=== PATIENT | male | born 1980 | race Caucasian/White ===

== ENCOUNTER 2018-03-10 01:24 | Inpatient (IN) ==
[2018-03-10] MEDS ORDERED: SODIUM CHLORIDE 1,000 ML IV STA (01:41)
[2018-03-10] MEDS ORDERED: VANCOMYCIN 1.5 GM in SODIUM CHLORIDE 250 ML IV STA (01:41)
--- NOTE | 2018-03-10 02:20 | ED.PDOC ---
General ED Provider: Dr. FEROZ BRADLEY Chief Complaint: Cellulitis Stated Complaint: sudden onset of rash on the right lower extremity that started tonight after he left work. The leg became edematous and is seeping clear fluid Time Seen by Physician: 02:18 Mode of Arrival: Walk-In Information Source: Patient Exam Limitations: No limitations Primary Care Provider: [facility] Nursing and Triage Documentation Reviewed and Agree: Yes Does patient meet sepsis criteria?: No System Inflammatory Response Syndrome: Pulse >90 BPM Sepsis Protocol: For patient's 13 years and over: Temp is 96.8 and below OR 101 and greater Pulse >90 BPM Resp >20/minute Acutely Altered Mental Status Are patient's symptoms suggestive of a new infection, such as: -Pneumonia -Skin, Soft Tissue -Endocarditis -UTI -Bone, Joint Infection -Implantable Device -Acute Abdominal Infection -Wound Infection -Meningitis -Blood Stream Catheter Infection -Unknown Skin Complaint Exam - Skin Rash/Itching Complaint/Exam Onset/Duration: 2 hours ago Symptoms Are: Still present Initial Severity: Moderate Current Severity: Moderate Location: Right lower extremity Potential Exposures: Reports: Unknown Prior Treatment: nothing Aggravating: Reports: None Associated Signs and Symptoms: Denies: Difficulty breathing, Fever, Chills Skin Findings: Present: Purpura, Weeping skin Body Picture: 1 - cellulitis Differential Diagnoses: Contact Dermatitis, Other (cellulitis ) Review of Systems - Review Of Systems Constitutional: Reports: No symptoms Eyes: Reports: No symptoms Ears, Nose, Mouth, Throat: Reports: No symptoms Respiratory: Reports: No symptoms Cardiac: Reports: No symptoms GI: Reports: No symptoms : Reports: No symptoms Musculoskeletal: Reports: Joint swelling, Muscle pain Skin: Reports: Change in color, Rash Neurological: Reports: No symptoms Endocrine: Reports: No symptoms Hematologic/Lymphatic: Reports: No symptoms All Other Systems: Reviewed and Negative Past Medical History - Past Medical History Previously Healthy: Yes Endocrine: Reports: None Cardiovascular: Reports: None Respiratory: Reports: None Hematological: Reports: None Gastrointestinal: Reports: None Genitourinary: Reports: None Neuro/Psych: Reports: None Musculoskeletal: Reports: None Cancer: Reports: None - Surgical History General Surgical History: Reports: None - Family History Family History: Reports: Unknown - Social History Smoking Status: Current every day smoker, Heavy tobacco smoker Hx Substance Use: No Alcohol Screening: Occasionally - Immunizations Tetanus Shot up to Date: No Physical Exam - Physical Exam Appearance: Ill-appearing, Obese Pain Distress: Moderate Eyes: ROBERTO, EOMI, Conjunctiva clear Respiratory: Airway patent, Breath sounds clear, Breath sounds equal, Respirations nonlabored Cardiovascular: RRR, Pulses normal, No rub, No murmur GI/: Soft, Nontender, No masses, Bowel sounds normal, No Organomegaly Musculoskeletal: Normal strength, ROM intact, No calf tenderness, Edema (right lower extremity ) Skin: Warm, Dry Neurological: Alert, Oriented Psychiatric: Anxious Physician Notification - Case Discussed Physician Notified: Dr Farmer Time of Notification: 02:00 (Admit to aburto place on antibitics ) Critical Care Note - Critical Care Note Total Time (mins): 0 Course - Course Hematology/Chemistry: 03/10/18 01:50 03/10/18 01:50 Orders, Labs, Meds: Lab Review 03/10/18 03/10/18 03/10/18 01:50 01:50 01:50 WBC 13.00 H RBC 4.71 Hgb 13.3 L Hct 38.7 L MCV 82.2 MCH 28.2 MCHC 34.4 RDW Coeff of [place] 13.6 Plt Count 199 Immature Gran % (Auto) 0.5 Neut % (Auto) 82.4 Lymph % (Auto) 8.8 L [place] % (Auto) 7.8 Eos % (Auto) 0.2 Baso % (Auto) 0.3 Immature Gran # (Auto) 0.1 Neut # (Auto) 10.7 H Lymph # (Auto) 1.2 [place] # (Auto) 1.0 Eos # (Auto) 0.0 Baso # (Auto) 0.0 Sodium 136 Potassium 3.1 L Chloride 105 Carbon Dioxide 20 L Anion Gap 14.1 BUN 16 Creatinine 0.84 Estimated GFR (MDRD) 102.00 BUN/Creatinine Ratio 19.04 Glucose 104 H Lactic Acid Calcium 9.0 Total Bilirubin 0.6 AST 30 ALT 29 Alkaline Phosphatase 73 Total Protein 7.4 Albumin 3.1 L Globulin 4.3 Albumin/Globulin Ratio 0.72 Procalcitonin 1.68 03/10/18 01:50 WBC RBC Hgb Hct MCV MCH MCHC RDW Coeff of [place] Plt Count Immature Gran % (Auto) Neut % (Auto) Lymph % (Auto) [place] % (Auto) Eos % (Auto) Baso % (Auto) Immature Gran # (Auto) Neut # (Auto) Lymph # (Auto) [place] # (Auto) Eos # (Auto) Baso # (Auto) Sodium Potassium Chloride Carbon Dioxide Anion Gap BUN Creatinine Estimated GFR (MDRD) BUN/Creatinine Ratio Glucose Lactic Acid 10.8 Calcium Total Bilirubin AST ALT Alkaline Phosphatase Total Protein Albumin Globulin Albumin/Globulin Ratio Procalcitonin Orders Category Date Time Status INTAKE & OUTPUT Q8HR CARE 03/10/18 02:25 Active VITAL SIGNS Q4HR CARE 03/10/18 02:25 Active REGULAR DIET DIETARY 03/10/18 Breakfast Ordered ED APPLY O2 .ONCE EMERGENCY 03/10/18 01:41 Active ED AEROSPACE QUALITY ENGINEER APPLIED .ONCE EMERGENCY 03/10/18 01:41 Active IV [ED IV/MEDIPORT/POWERPORT] .ONCE EMERGENCY 03/10/18 02:05 Active BASIC METABOLIC PANEL DAILY@0600 LAB 03/11/18 06:00 Ordered BLOOD CULTURE (ED ONLY) Stat LAB 03/10/18 01:50 Received CBC W/ AUTO DIFF DAILY@0600 LAB 03/11/18 06:00 Ordered CBC W/ AUTO DIFF Stat LAB 03/10/18 01:50 Completed COMPREHENSIVE METABOLIC PANEL Stat LAB 03/10/18 01:50 Completed LACTIC ACID Stat LAB 03/10/18 01:50 Completed PROCALCITONIN Stat LAB 03/10/18 01:50 Completed 0.9 % Sodium Chloride [Saline Flush] MEDS 03/10/18 02:05 Active 1 syr IVF PRN PRN Acetaminophen [Tylenol] MEDS 03/10/18 02:25 Active 650 mg PO Q4H PRN Enoxaparin Sodium [Lovenox] MEDS 03/10/18 09:00 Active 40 mg SUBCUT DAILY Furosemide [Lasix] MEDS 03/10/18 06:30 Active 20 mg IVP QDAC Hydrocodone Bit/Acetaminophen [[place] 5-325] MEDS 03/10/18 02:25 Active 1 tab PO Q6H PRN Morphine Sulfate [Morphine 2 mg/ml Syringe] MEDS 03/10/18 02:25 Active 2 mg IVP Q4H PRN Ondansetron HCl/Pf [Zofran 4 mg/2 ml] MEDS 03/10/18 02:25 Active 4 mg IVP Q6H PRN Potassium Chloride [K-Dur] MEDS 03/10/18 03:00 Active 20 meq PO DAILY Sodium Chloride 0.9% [Sodium Chloride] 1,000 ml MEDS 03/10/18 01:41 Active IV 100 mls/hr Sodium Chloride 0.9% [Sodium Chloride] 1,000 ml MEDS 03/10/18 02:30 Active IV 125 mls/hr Vancomycin HCl [Vancomycin] 1.5 gm MEDS 03/10/18 01:41 Discontinued 0.9 % Sodium Chloride [Sodium Chloride] 250 ml IV ONCE Vancomycin HCl [Vancomycin] 1.5 gm MEDS 03/10/18 09:00 Discontinued 0.9 % Sodium Chloride [Sodium Chloride] 250 ml IV Q12HR RESUSCITATION STATUS Routine OTHERS 03/10/18 02:25 Ordered Medications Generic Name Dose Route Start Last Admin Trade Name Freq PRN Reason Stop Dose Admin Acetaminophen 650 mg 03/10/18 02:25 Tylenol PO Q4H PRN mild pain Hydrocodone Bitart/Acetaminophen 1 tab 03/10/18 02:25 [place] 5-325 PO Q6H PRN moderate pain Enoxaparin Sodium 40 mg 03/10/18 09:00 03/10/18 08:50 Lovenox SUBCUT 40 mg DAILY SANDEE Administration Furosemide 20 mg 03/10/18 06:30 03/10/18 06:10 Lasix IVP 20 mg QDAC SANDEE Administration Sodium Chloride 1,000 mls @ 100 mls/hr 03/10/18 01:41 03/10/18 02:09 Sodium Chloride IV 03/10/18 11:40 100 mls/hr .Q10H STA Administration Sodium Chloride 1,000 mls @ 125 mls/hr 03/10/18 02:30 03/10/18 05:01 Sodium Chloride IV Not Given .Q8H SANDEE Vancomycin HCl 1.5 gm/ Sodium 500 mls @ 200 mls/hr 03/10/18 13:00 Chloride IV Q8HR SANDEE Ibuprofen 600 mg 03/10/18 07:12 Motrin PO Q6H PRN Pain Morphine Sulfate 2 mg 03/10/18 02:25 Morphine 2 Mg/Ml Syringe IVP Q4H PRN Severe Pain Ondansetron HCl 4 mg 03/10/18 02:25 Zofran 4 Mg/2 Ml IVP Q6H PRN nausea and vomiting Potassium Chloride 20 meq 03/10/18 03:00 03/10/18 08:50 K-Dur PO 20 meq DAILY SANDEE Administration Sodium Chloride 1 syr 03/10/18 02:05 03/10/18 02:08 Saline Flush IVF 1 syr PRN PRN Administration To flush IV Discontinued Medications Generic Name Dose Route Start Last Admin Trade Name Freq PRN Reason Stop Dose Admin Vancomycin HCl 1.5 gm/ Sodium 250 mls @ 250 mls/hr 03/10/18 01:41 03/10/18 02 :17 Chloride IV 03/10/18 02:40 250 mls/hr ONCE STA Administration Vancomycin HCl 1.5 gm/ Sodium 250 mls @ 125 mls/hr 03/10/18 09:00 Chloride IV Q12HR SANDEE Vital Signs: Temp Pulse Resp BP Pulse Ox 03/10/18 01:25 98.7 F 109 H 20 132/81 96 Departure - Departure Time of Disposition: 02:34 Disposition: HOME SELF-CARE Discharge Problem: Cellulitis, Lower leg edema, Hypokalemia Condition: Stable Pt referred to PMD for follow-up: No IPMP verified?: No Allergies/Adverse Reactions: Allergies Penicillins Allergy (Severe, Verified 03/10/18 01:37) rash Home Medications: Ambulatory Orders Ibuprofen 600 mg PO Q6H PRN 03/10/18 Disposition Discussed With: Patient, Family
[2018-03-10] MEDS ORDERED: ZOFRAN 4 MG/2 ML IVP PRN (02:25)
[2018-03-10] MEDS ORDERED: TYLENOL PO PRN (02:25)
[2018-03-10] MEDS ORDERED: MORPHINE 2 MG/ML SYRINGE IVP PRN (02:25)
[2018-03-10] MEDS ORDERED: NORCO 5-325 PO PRN (02:25)
[2018-03-10] MEDS ORDERED: IBUPROFEN 600 MG PO PRN (02:29)
[2018-03-10 03:31] VITALS: BMI 40.4
[2018-03-10] MEDS: K-DUR PO SCH ×2 (05:00→08:50)
[2018-03-10] MEDS: SODIUM CHLORIDE 1,000 ML IV SCH ×2 (05:01→13:06)
[2018-03-10] MEDS: LASIX IVP SCH (06:10)
[2018-03-10] MEDS ORDERED: MOTRIN PO PRN (07:12)
[2018-03-10] MEDS: LOVENOX SUBCUT SCH (08:50)
[2018-03-10] MEDS ORDERED: VANCOMYCIN 1.5 GM in SODIUM CHLORIDE 250 ML IV SCH (09:00)
[2018-03-10] MEDS: VANCOMYCIN 1.5 GM in SODIUM CHLORIDE 500 ML IV SCH ×2 (12:05→21:52)
[2018-03-10] MEDS: SODIUM CHLORIDE 500 ML IV SCH (15:16)
[2018-03-10] MEDS ORDERED: ROCEPHIN ONE (20:44)
[2018-03-10] MEDS: ROCEPHIN 1 GM in SODIUM CHLORIDE 50 ML IV SCH (20:54)
[2018-03-11] MEDS: VANCOMYCIN 1.5 GM in SODIUM CHLORIDE 500 ML IV SCH ×3 (05:00→20:57)
[2018-03-11] MEDS: LASIX IVP SCH (05:35)
[2018-03-11] MEDS: LOVENOX SUBCUT SCH (08:45)
[2018-03-11] MEDS: K-DUR PO SCH (08:45)
[2018-03-11] MEDS ORDERED: K-DUR PO STA (08:57)
[2018-03-11] MEDS: SODIUM CHLORIDE 500 ML IV SCH (09:12)
[2018-03-11] MEDS: DIFLUCAN PO SCH ×2 (09:13→20:09)
--- NOTE | 2018-03-11 15:22 | HP ---
DATE OF SERVICE: 03/10/18 CHIEF COMPLAINT/HISTORY OF PRESENT ILLNESS: The patient came with the redness and swelling to the right lower extremity, started on . Gradually the redness initially started yesterday above the ankle then it went up to circumferentially around the ankle and then the red streaks were going up to the right thigh up the groin. As swelling and redness is getting worse and the patient started having the fever and chills came to the emergency room. The patient did take Ibuprofen 600mg before coming to the emergency room. Temperature 98.7. Seen by Dr. Khan. WBC was 13,000 with left shift, Potassium 3.1, sugar 104. At that time the patient was admitted to the hospital for the IV antibiotics for right lower extremity diffused cellulitis. REVIEW OF SYSTEMS: CONSTITUTIONAL: Fever, Chills. HEENT: Normal. ENDOCRINE: No weight gain; no weight loss. CVS: No chest pain. No PND, no orthopnea. No shortness of breath. No PND, no orthopnea. RESPIRATORY: No cough, no congestion. No hemoptysis. GI: No nausea, no vomiting. No abdominal pain. No melena. : No hematuria. No polyuria. MUSCULOSKELETAL: No joint swelling. Right leg pain, swelling, redness. PSYCHIATRIC: Not anxious. No depression. No suicidal thoughts. No homicidal thoughts. SKIN: Intact, no open lesions. PAST MEDICAL HISTORY: Sleep apnea on CPAP Nicotine use PAST SURGICAL HISTORY: Umbilical hernia repair PERSONAL HISTORY: The patient does smoke. Works at the [employer] as a cook. Alcohol socially, no drugs. Smokes a pack per day. FAMILY HISTORY: No medical problems. MEDICATIONS: Ibuprofen ALLERGIES: Penicillin PHYSICAL EXAMINATION: V/S: Blood pressure 132/81, respiratory rate 20, heart rate 109, temperature 98.7 and saturation 96% HEENT: Atraumatic, normocephalic. No scleral icterus. Pallor positive. Mucosa dry. NECK: Supple. No JVD, no bruit. No lymphadenopathy. No thyromegaly. HEART: S1, S2 normal. No murmur. No cyanosis or clubbing. No ascites. LUNGS: Clear to auscultation. No rales or rhonchi. ABDOMEN: Soft, nontender. Bowel sounds are active. No CVA tenderness. No rigidity or guarding. EXTREMITIES: No pedal edema. No cyanosis or clubbing. Discomfort right leg. Swelling and redness is present. Redness is starting just above the right ankle and has almost 1-2cm bleb. Redness is circumferential and the streaks are going up to the mid calf and to the back to the thigh and to the thigh. Tender to touch and warm to touch. MUSCULOSKELETAL: Normal joints, no swelling. NEUROLOGIC: The patient is alert and oriented. SKIN: Intact; no open lesions. LYMPHATIC: No lymph nodes palpable. LABS: Sodium 136, potassium 3.1, chloride 105, bicarb 20, BUN 16, creatinine 0.84 and glucose 104.WBC 13.0, hgb 13.3, hct 38.7, plt count 199. ASSESSMENT: 1. Right lower extremity cellulitis, diffused 2. Leukocytosis 3. Hypokalemia 4. Sleep apnea PLAN: 1. Admit patient to the regular floor 2. CBC and CMP today and daily 3. Keep the legs elevated 4. Regular diet 5. Vancomycin and Rocephin TIME SPENT: MORE THAN 65 minutes MTDD
[2018-03-11] MEDS: SODIUM CHLORIDE 1,000 ML IV SCH (18:31)
[2018-03-11] MEDS: ROCEPHIN 1 GM in SODIUM CHLORIDE 50 ML IV SCH (20:09)
[2018-03-12] MEDS: VANCOMYCIN 1.5 GM in SODIUM CHLORIDE 500 ML IV SCH ×3 (04:49→21:04)
[2018-03-12] MEDS: LASIX IVP SCH (05:36)
[2018-03-12] MEDS: K-DUR PO SCH (08:53)
[2018-03-12] MEDS: DIFLUCAN PO SCH ×2 (08:53→21:04)
[2018-03-12] MEDS: LOVENOX SUBCUT SCH (08:54)
--- NOTE | 2018-03-12 13:51 | PN ---
DATE OF SERVICE: 03/11/18 SUBJECTIVE: The patient was admitted with right lower extremity diffuse cellulitis. Redness and swelling is slowly getting better. REVIEW OF SYSTEMS: CONSTITUTIONAL: No fever, no chills. HEENT: Normal. ENDOCRINE: No weight gain, no weight loss. CVS: No angina symptoms. No CHF symptoms. No palpitations. No atypical chest pain for CAD. No shortness of breath. No PND, no orthopnea. RESPIRATORY: No cough, no hemoptysis. GI: No nausea, no vomiting. No abdominal pain. : No hematuria. No polyuria. MUSCULOSKELETAL: Redness and swelling right leg above the ankle. PSYCHIATRIC: Not anxious. No depression. No suicidal thoughts. No homicidal thoughts. SKIN: Intact. No rash. PHYSICAL EXAMINATION: V/S: BP 114/71, respiratory rate 18, heart rate 87, temperature 98.2, saturation 96. HEENT: Normocephalic, atraumatic. Mucosa dry. Pallor positive. No icterus. NECK: Supple. No JVD, no carotid bruit. No lymphadenopathy. LUNGS: Decreased breath sounds. Clear to auscultation. No rales or rhonchi. HEART: S1, S2 normal. No S3. No murmur, gallop or regurgitation. ABDOMEN: Soft, nontender. Bowel sounds active. No rigidity. No rebound or guarding. No CVA tenderness. EXTREMITIES: Right leg above the ankle redness and swelling present, warm to touch, tender to touch. No cyanosis, clubbing or pedal edema. MUSCULOSKELETAL: No joint swelling. NEUROLOGIC: Awake, alert. No focal deficit. LYMPHATIC: No lymph nodes palpable. SKIN: Intact. LABS: White count 7.91, hemoglobin 11.8, hematocrit 34.2, platelet count 192. Sodium 137, potassium 3.2, chloride 108, bicarb 21, BUN 30, creatinine 0.70, glucose 108. ASSESSMENT: 1. RIGHT LOWER EXTREMITY CELLULITIS, DIFFUSE, CIRCUMFERENTIAL 2. HYPOKALEMIA 3. OBESITY PLAN: 1. Continue Rocephin, Vancomycin. 2. Will add Diflucan. 3. Keep leg elevated. TIME SPENT: More than 35 minutes MTDD
--- NOTE | 2018-03-12 14:39 | CT ---
Exam: CT of the right tibia and fibula with intravenous contrast. Comparison: None available. Reason for exam: Cellulitis right lower extremity. FINDINGS: No acute fracture or malalignment is seen in the right tibia or fibula. The cortices are intact. Extensive cellulitis is seen throughout the soft tissues without obvious involvement of the underlying osseous structures or infiltration of the musculature. No discrete drainable fluid collec tion is seen. There is a 1.8 x 1.2 cm hypodensity in skin overlying the proximal tibia on axial imag e number 145. Right lower extremity vascularity appears grossly unremarkable. Impression: 1. No acute fracture or malalignment in the right tibia-fibula. 2. Extensive inflammatory changes are seen throughout the right lower extremity soft tissues consist ent with cellulitis. 3. No discrete drainable fluid collection is seen in the subcutaneous fat. No obvious involvement o f the underlying osseous structures or musculature. If clinical concern exists, MRI may be performed for further characterization. 4. Cystic lesion in the anterior tibial skin has an appearance consistent with a boil or cyst.
[2018-03-12] MEDS: ZOSYN 3.375 GM 3.375 GM in SODIUM CHLORIDE 50 ML IV SCH ×2 (17:09→23:56)
[2018-03-13] MEDS: VANCOMYCIN 1.5 GM in SODIUM CHLORIDE 500 ML IV SCH ×3 (06:11→20:23)
[2018-03-13] MEDS: LASIX IVP SCH (06:31)
[2018-03-13] MEDS: ZOSYN 3.375 GM 3.375 GM in SODIUM CHLORIDE 50 ML IV SCH ×4 (07:03→17:09)
[2018-03-13] MEDS: TORADOL IVP SCH ×3 (07:59→21:15)
[2018-03-13] MEDS: DIFLUCAN PO SCH ×2 (08:14→20:23)
[2018-03-13] MEDS: K-DUR PO SCH (08:14)
[2018-03-13] MEDS: LOVENOX SUBCUT SCH (08:15)
[2018-03-13] MEDS ORDERED: DECADRON 4 MG/ML SDV IM STA (08:21)
[2018-03-13] MEDS: SODIUM CHLORIDE 1,000 ML IV SCH (08:44)
--- NOTE | 2018-03-13 10:41 | PN ---
DATE OF SERVICE: 03/12/18 SUBJECTIVE: The patient was admitted with right lower extremity cellulitis. It is getting slowly better, redness and swelling and improving. The patient did have a fever of 100.4 yesterday. REVIEW OF SYSTEMS: CONSTITUTIONAL: Fever, no chills. HEENT: Normal. ENDOCRINE: No weight gain, no weight loss. CVS: No angina symptoms. No CHF symptoms. No palpitations. No atypical chest pain for CAD. No shortness of breath. No PND, no orthopnea. RESPIRATORY: No cough, no hemoptysis. GI: No nausea, no vomiting. No abdominal pain. : No hematuria. No polyuria. MUSCULOSKELETAL: No joint swelling. PSYCHIATRIC: Not anxious. No depression. No suicidal thoughts. No homicidal thoughts. SKIN: Intact. No rash. PHYSICAL EXAMINATION: V/S: Blood pressure 116/72, respiratory rate 16, heart rate 96, temperature 98.7 , saturation 96%. HEENT: Normocephalic, atraumatic. Mucosa dry. Pallor positive. no icterus. NECK: Supple. No JVD, no carotid bruit. No lymphadenopathy. LUNGS: Decreased and clear to auscultation. No rales or rhonchi. HEART: S1, S2 normal. No S3. No murmur, gallop or regurgitation. ABDOMEN: Soft, nontender. Bowel sounds active. No rigidity. No rebound or guarding. No CVA tenderness. EXTREMITIES: No cyanosis, clubbing or pedal edema. Right lower extremity redness circumferentially present. Thickened skin and anterior bled is present. Tenderness in the calf present. MUSCULOSKELETAL: No joint swelling. NEUROLOGIC: Awake, alert. No focal deficit. LYMPHATIC: No lymph nodes palpable. SKIN: Intact. LABS: WBC 7.91, hgb 11.8, hct 34.2, plt count 192, sodium 137, potassium 3.2, chloride 108, bicarb 21, BUN 10, creatinine 0.70 and glucose 108. Calcium is 7.7 , lactic acid is negative. ASSESSMENT: 1. Right lower extremity diffused cellulitis, circumferential 2. Nicotine use 3. Hypokalemia 4. Obesity 5. Umbilical hernia repair PLAN: 1. Stop the Rocephin 2. Start the patient on Zosyn and Vancomycin 3. Continue Diflucan 4. Keep the leg elevated TIME SPENT: More than 35 minutes MTDD
[2018-03-14] MEDS: ZOSYN 3.375 GM 3.375 GM in SODIUM CHLORIDE 50 ML IV SCH ×4 (00:10→17:17)
[2018-03-14] MEDS: LASIX IVP SCH (05:55)
[2018-03-14] MEDS: TORADOL IVP SCH ×3 (05:55→20:10)
[2018-03-14] MEDS: VANCOMYCIN 1.5 GM in SODIUM CHLORIDE 500 ML IV SCH ×3 (06:43→20:27)
[2018-03-14] MEDS: DIFLUCAN PO SCH ×2 (10:10→20:27)
[2018-03-14] MEDS: LOVENOX SUBCUT SCH (10:11)
[2018-03-14] MEDS: K-DUR PO SCH (10:11)
--- NOTE | 2018-03-14 11:44 | PN ---
DATE OF SERVICE: 03/13/18 SUBJECTIVE: The patient is admitted with right lower extremity diffuse circumferential cellulitis. Swelling and redness is somewhat better. The patient had a CT of the lower extremity with IV contrast which did show the superficial cellulitis but no compartment syndrome, no inflammation of the muscles or bone. The patient was able to move the leg more today. REVIEW OF SYSTEMS: CONSTITUTIONAL: No fever, no chills. HEENT: Normal. ENDOCRINE: No weight gain, no weight loss. CVS: No angina symptoms. No CHF symptoms. No palpitations. No atypical chest pain for CAD. No shortness of breath. No PND, no orthopnea. RESPIRATORY: No cough, no hemoptysis. GI: No nausea, no vomiting. No abdominal pain. : No hematuria. No polyuria. MUSCULOSKELETAL: No joint swelling. PSYCHIATRIC: Not anxious. No depression. No suicidal thoughts. No homicidal thoughts. SKIN: Intact. No rash. PHYSICAL EXAMINATION: V/S: BP 108/72, respiratory rate 18, heart rate 72, temperature 98.0, saturation 98. HEENT: Normocephalic, atraumatic. Mucosa dry, pallor positive. NECK: Supple. No JVD, no carotid bruit. No lymphadenopathy. LUNGS: Clear to auscultation. No rales or rhonchi. HEART: S1, S2 normal. No S3. No murmur, gallop or regurgitation. ABDOMEN: Soft, nontender. Bowel sounds active. No rigidity. No rebound or guarding. No CVA tenderness. EXTREMITIES: Right lower extremity redness and swelling is present just above the ankle. Circumferential redness almost 6 to 7 cm in length and around the calf, thick, red, warm to touch and there is a bleb around 2 cm circumferential , tender to touch, 1 to 2+ pitting edema. MUSCULOSKELETAL: No joint swelling. NEUROLOGIC: Awake, alert. No focal deficit. LYMPHATIC: No lymph nodes palpable. SKIN: Intact. LABS: White count 9.76, hemoglobin 11.8, hematocrit 35.6, platelet count 239. Sodium 138, potassium 3.8, chloride 108, bicarb 22, BUN 9, creatinine 0.66. ASSESSMENT: 1. RIGHT LOWER EXTREMITY DIFFUSE CELLULITIS WHICH IS GETTING BETTER 2. LEUKOCYTOSIS 3. HYPOKALEMIA WHICH IS BETTER 4. UMBILICAL HERNIA PLAN: 1. Continue Vancomycin, Zosyn, Diflucan 2. Keep leg elevated 3. Activity as much as tolerated TIME SPENT: More than 35 minutes MTDD
[2018-03-15] MEDS: ZOSYN 3.375 GM 3.375 GM in SODIUM CHLORIDE 50 ML IV SCH ×4 (00:35→17:12)
[2018-03-15] MEDS: VANCOMYCIN 1.5 GM in SODIUM CHLORIDE 500 ML IV SCH (05:01)
[2018-03-15] MEDS: SODIUM CHLORIDE 1,000 ML IV SCH (05:03)
[2018-03-15] MEDS: TORADOL IVP SCH ×3 (05:53→22:45)
[2018-03-15] MEDS: LASIX IVP SCH (05:55)
[2018-03-15] MEDS: K-DUR PO SCH (08:52)
[2018-03-15] MEDS: DIFLUCAN PO SCH ×2 (08:52→20:19)
[2018-03-15] MEDS: LOVENOX SUBCUT SCH (08:53)
--- NOTE | 2018-03-15 09:05 | PN ---
DATE OF SERVICE: 03/14/18 SUBJECTIVE: Swelling, redness and pain in the right leg getting better. No fever since March 12, 2018. REVIEW OF SYSTEMS: CONSTITUTIONAL: No fever, no chills. HEENT: Normal. ENDOCRINE: No weight gain, no weight loss. CVS: No angina symptoms. No CHF symptoms. No palpitations. No atypical chest pain for CAD. No shortness of breath. No PND, no orthopnea. RESPIRATORY: No cough, no hemoptysis. GI: No nausea, no vomiting. No abdominal pain. : No hematuria. No polyuria. MUSCULOSKELETAL: Swelling, redness and pain in right leg, improving. PSYCHIATRIC: Not anxious. No depression. No suicidal thoughts. No homicidal thoughts. SKIN: Intact. No rash. PHYSICAL EXAMINATION: V/S: BP 131/82, respiratory rate 16, heart rate 54, temperature 97.6, saturation 98. HEENT: Normocephalic, atraumatic. NECK: Supple. No JVD, no carotid bruit. No lymphadenopathy. LUNGS: Clear to auscultation. No rales or rhonchi. HEART: S1, S2 normal. No S3. No murmur, gallop or regurgitation. ABDOMEN: Soft, nontender. Bowel sounds active. No rigidity. No rebound or guarding. No CVA tenderness. EXTREMITIES: Right lower extremity above the ankle, redness has started and went up to almost half the length up and is circumferential, thick red layer patch with a bleb which is almost 3 to 4 cm, warm and tender to touch. It is circumferential covering the whole right lower extremity. There is redness spreading out of the marking today. No cyanosis, clubbing or pedal edema. MUSCULOSKELETAL: No joint swelling. NEUROLOGIC: Awake, alert. No focal deficit. LYMPHATIC: No lymph nodes palpable. SKIN: Intact. LABS: White count 16.70, hemoglobin 12.1, hematocrit 36.4, platelet count 275. Sodium 140, potassium 4.7, chloride 109, bicarb 23, BUN 12, creatinine 0.72, glucose 212. ASSESSMENT: 1. RIGHT LOWER EXTREMITY DIFFUSE CIRCUMFERENTIAL CELLULITIS 2. OBESITY 3. LEUKOCYTOSIS 4. STATUS POST HYPOKALEMIA PLAN: 1. Continue Zosyn, Vancomycin, Diflucan TIME SPENT: More than 35 minutes MTDD
--- NOTE | 2018-03-15 13:05 | PCM.PROG ---
Attending Provider: ATTENDING PROVIDER: [facility] DATE OF SERVICE: 03/15/18 SUBJECTIVE: This 37 year old WHITE/ M was hospitalized 03/10/18. The patient admitted with right lower extremity cellulitis. The wound started draining clear liquid from ruptured bleb. Pain and swelling are some better. The redness on the right leg is still inside the marked areas, is not spreading at this time. REVIEW OF SYSTEMS: CONSTITUTIONAL: No fever, no chills. ENDOCRINE: No weight loss or weight gain. HEENT: No sinus drainage, no sore throat. CVS: No angina symptoms. No CHF symptoms. No palpitations. No atypical chest pain for CAD. No shortness of breath. RESPIRATORY: No cough, no hemoptysis. GI: No melena. No abdominal pain. No nausea, no vomiting. : No hematuria. No polyuria. SKIN: No rash. Right lower extremity cellulitis. Redness right leg inside marked areas. MUSCULOSKELETAL: No pain. MOLDER FITTING: No blackout, no dizziness. No headache. No double vision. PSYCHIATRIC: Not anxious; no depression. No suicidal thoughts. No homicidal thoughts. PHYSICAL EXAMINATION: GENERAL: Obese patient lying in bed in no distress. VITAL SIGNS: Temperature 98.6 F, Pulse 72, Respiratory Rate 18, BP 109/65, Pulse Ox 97% HEENT: Normocephalic, atraumatic. Mucosa is dry, pallor positive. NECK: No JVP, no carotid bruit. No lymphadenopathy. CARDIAC: S1, S2, no S3. No murmur, gallop or regurgitation. LUNGS: Clear to auscultation. ABDOMEN: Soft, non-tender. Bowel sounds active. No rigidity, guarding or CVA tenderness. EXTREMITIES: Right leg above ankle redness spread 7 to 8 inches circumferential swelling and redness with ruptured bleb leaking clear fluid, warm to touch, 1 to 2+ leg edema. The rest of the skin is trying to form a bleb. NEUROLOGIC: Awake, alert and oriented x3. LYMPHATIC: No palpable lymph nodes SKIN: Not dry. Intact. MUSCULOSKELETAL: No joint swelling. LAB REVIEW: 03/14/18 04:30 03/14/18 04:30 ASSESSMENT: 1. CELLULITIS, RLE 2. TOBACCO USE 3. HYPOKALEMIA, RESOLVED 4. UMBILICAL HERNIA REPAIR PLAN: 1. Culture drainage from right leg, leave open to air. 2. Continue Zosyn IV every 6 hours. 3. Stop Vancomycin. 4. Encourage the patient to exercise legs frequently, ambulate. Plan and coordination of the patient's care discussed in the presence of Wrapper Sheeter and nurse. CONDITION: Stable SCRIBED BY: CHIDI NOE [employer] scribed while in presence of service performed by Dr. [facility] on 03/15/18 ([id number])
[2018-03-16] MEDS: ZOSYN 3.375 GM 3.375 GM in SODIUM CHLORIDE 50 ML IV SCH ×5 (00:44→23:20)
[2018-03-16] MEDS: TORADOL IVP SCH ×3 (05:23→20:43)
[2018-03-16] MEDS: SODIUM CHLORIDE 1,000 ML IV SCH ×2 (06:52→11:30)
[2018-03-16] MEDS ORDERED: DECADRON 4 MG/ML SDV IVP STA (07:43)
[2018-03-16] MEDS: DIFLUCAN PO SCH ×2 (08:20→20:43)
[2018-03-16] MEDS: LOVENOX SUBCUT SCH (08:21)
[2018-03-16] MEDS: K-DUR PO SCH (08:21)
[2018-03-17] MEDS: ZOSYN 3.375 GM 3.375 GM in SODIUM CHLORIDE 50 ML IV SCH ×4 (05:26→23:30)
[2018-03-17] MEDS: TORADOL IVP SCH ×3 (05:26→20:26)
[2018-03-17] MEDS: LOVENOX SUBCUT SCH (08:53)
[2018-03-17] MEDS: K-DUR PO SCH (08:53)
[2018-03-17] MEDS: DIFLUCAN PO SCH ×2 (08:53→20:26)
[2018-03-18] MEDS: TORADOL IVP SCH ×3 (05:45→21:13)
[2018-03-18] MEDS: ZOSYN 3.375 GM 3.375 GM in SODIUM CHLORIDE 50 ML IV SCH ×3 (05:45→17:58)
[2018-03-18] MEDS: DIFLUCAN PO SCH ×2 (09:49→21:12)
[2018-03-18] MEDS: LOVENOX SUBCUT SCH (09:50)
[2018-03-18] MEDS: K-DUR PO SCH (09:50)
--- NOTE | 2018-03-18 11:35 | PN ---
DATE OF SERVICE: 03/17/18 SUBJECTIVE: Admitted with right lower extremity cellulitis. Swelling and redness is getting better. No culture as grown so far. He can walk better. The swelling and redness is more concentrated in the anterior part of the right lower extremity. No fever, no chills. REVIEW OF SYSTEMS: CONSTITUTIONAL: No fever, no chills. HEENT: Normal. ENDOCRINE: No weight gain, no weight loss. CVS: No angina symptoms. No CHF symptoms. No palpitations. No atypical chest pain for CAD. No shortness of breath. No PND, no orthopnea. RESPIRATORY: No cough, no hemoptysis. GI: No nausea, no vomiting. No abdominal pain. : No hematuria. No polyuria. MUSCULOSKELETAL: No joint swelling. PSYCHIATRIC: Not anxious. No depression. No suicidal thoughts. No homicidal thoughts. SKIN: Intact. Swelling, redness anterior part of right lower extremity. PHYSICAL EXAMINATION: V/S: BP 112/74, respiratory rate 18, heart rate 78, temperature 98.1, saturation 97. HEENT: Normocephalic, atraumatic. Mucosa dry. Pallor positive. No icterus. NECK: Supple. No JVD, no carotid bruit. No lymphadenopathy. LUNGS: Clear to auscultation. No rales or rhonchi. HEART: S1, S2 normal. No S3. No murmur, gallop or regurgitation. ABDOMEN: Soft, nontender. Bowel sounds active. No rigidity. No rebound or guarding. No CVA tenderness. EXTREMITIES: Right lower extremity above the right ankle, redness, swelling is present which is extending up 7 to 10 cm. Thick skin, red, cobblestone appearing and a bleb which is ruptured and draining blood. Circumferential redness is still present. Gradually the redness in the back of the leg is fading. No cyanosis, clubbing. MUSCULOSKELETAL: No joint swelling. NEUROLOGIC: Awake, alert. No focal deficit. LYMPHATIC: No lymph nodes palpable. SKIN: Intact. LABS: White count 10.70, hemoglobin 12.1, hematocrit 36.4, platelet count 275. Sodium 140, potassium 4.7, chloride 109, bicarb 23, BUN 12, creatinine 0.72, glucose 212. ASSESSMENT: 1. RIGHT LOWER EXTREMITY CELLULITIS 2. OBESITY 3. HYPERKALEMIA WHICH IS BETTER PLAN: 1. Will get blood work, CBC, CMP today on the patient. 2. Will continue to follow with the patient. TIME SPENT: More than 35 minutes MTDD
[2018-03-19] MEDS: ZOSYN 3.375 GM 3.375 GM in SODIUM CHLORIDE 50 ML IV SCH ×3 (00:25→13:32)
[2018-03-19] MEDS: TORADOL IVP SCH ×2 (05:21→13:32)
[2018-03-19] MEDS: K-DUR PO SCH (09:03)
[2018-03-19] MEDS: DIFLUCAN PO SCH (09:03)
[2018-03-19] MEDS: LOVENOX SUBCUT SCH (09:04)
--- NOTE | 2018-03-19 09:08 | PN ---
DATE OF SERVICE: 03/18/18 SUBJECTIVE: The patient was admitted with the right lower extremity cellulitis. Swelling and redness is somewhat improved. Pain is better. Walking more. REVIEW OF SYSTEMS: CONSTITUTIONAL: No fever, no chills. HEENT: Normal. ENDOCRINE: No weight gain, no weight loss. CVS: No angina symptoms. No CHF symptoms. No palpitations. No atypical chest pain for CAD. No shortness of breath. No PND, no orthopnea. RESPIRATORY: No cough, no hemoptysis. GI: No nausea, no vomiting. No abdominal pain. : No hematuria. No polyuria. MUSCULOSKELETAL: No joint swelling. PSYCHIATRIC: Not anxious. No depression. No suicidal thoughts. No homicidal thoughts. SKIN: Intact. No rash. PHYSICAL EXAMINATION: V/S: Blood pressure 109/64, respiratory rate 20, heart rate 67, temperature 98.4 with saturation 97%. HEENT: Normocephalic, atraumatic. Mucosa dry. Pallor positive. No icterus. NECK: Supple. No JVD, no carotid bruit. No lymphadenopathy. LUNGS: Decreased and clear to auscultation. No rales or rhonchi. HEART: S1, S2 normal. No S3. No murmur, gallop or regurgitation. ABDOMEN: Soft, nontender. Bowel sounds active. No rigidity. No rebound or guarding. No CVA tenderness. EXTREMITIES: No cyanosis, clubbing or pedal edema. Right lower extremity swelling and redness is present just above the ankle. Spreading up to almost 7- 8cm in the leg. Red, pink lesion. Warm to touch. There is a bled forming on the leg, tender to touch and warm to touch. MUSCULOSKELETAL: No joint swelling. NEUROLOGIC: Awake, alert. No focal deficit. LYMPHATIC: No lymph nodes palpable. SKIN: Intact. LABS: WBC 17.42, hgb 12.4, hct 37.2, plt count 370, sodium 140, potassium 4.2, chloride 107, bicarb 27, BUN 13, creatinine 0.75 and glucose 105. ASSESSMENT: 1. Right lower extremity circumferential cellulitis, no organism grown 2. Sleep apnea 3. Obesity PLAN: 1. Continue the Zosyn, Morphine and Fluconazole 2. Keep the leg elevated 3. Will get outpatient Id consultation for the patient. TIME SPENT: More than 35 minutes MTDD
[2018-03-19 14:10] VITALS: BP 147/86; TEMP 98
--- NOTE | 2018-03-19 17:27 | PCM.HOSP ---
- Initial Hospital Care [id number] 70 Minutes Bedside ([id number]): 7.29 - Subsequent Care [id number] 25 Minutes per Day ([id number]): /3. 8/4. 8/5. 8/6 [id number] 35 Minutes per Day ([id number]): 03/09. 7/30/. 7/31. 8/1. 8/2 - Hospital Discharge [id number] More than 30 Minutes ([id number]): 03/19
--- NOTE | 2018-03-20 15:52 | DS ---
DATE OF SERVICE: 03/19/18 FINAL DIAGNOSIS: 1. Right lower extremity diffused circumferential cellulitis 2. Hypokalemia resolved 3. Umbilical hernia repair, done 4. Tobacco use 5. Obesity DISCHARGE INSTRUCTIONS: Discharge the patient home. Keep the legs elevated. Followup with Dr. Forte March 21 at 9:30am. Please take Probiotics as being given antibiotics MEDICATIONS AT DISCHARGE: Tylenol as needed NEW PRESCRIPTIONS: Bactrim DS Diflucan DIET INSTRUCTIONS: Regular ACTIVITY: As tolerated DISEASE SPECIFIC EDUCATION: Lower extremity cellulitis Deeper infection and abscess been discussed and verbalized understanding. HOSPITAL COURSE: Sean Mcnamara who is a 37 year old male came to the emergency room on March 10 with right lower extremity swelling, redness and tenderness. Dark redness and swelling had started above the right ankle and spread circumferentially all over the leg and the streaks were going to the thigh. WBC was 13,000. Seen by Dr. Khan and admitted to the hospital. Started on the Rocephin and Vancomycin. [place] and Morphine was given for the pain. By next day swelling and redness was slightly decreased within the margins and antibiotics changed to the Zosyn. Culture did not grow any. Slowly the lesions were getting less red. The patient did have an anterior jane big bleb almost 3-4cm. Gradually ruptured and started oozing the serous fluid. CT of the right full leg was done which showed the superficial infection nothing going deeper and no compartment syndrome. Length of hospital stay is lengthy because of the slowly gradually healing area and thinking it maybe a fungal infection. Diflucan also being added. Steroids were also given. Swelling and redness were gradually shrinking and wound is slowly started closing but still had anterior patch almost 10cm wide and 7cm long with middle of the lesion had a bleb that is ruptured and oozing serious fluid and some the blebs were ready to pop. Given his leg, no cultures and we thought it would be a good idea to get a infectious disease consultation and talked to Dr. Forte and he was courteous enough to accept and said that he will be seeing the patient as outpatient on . The patient being sent home on the Bactrim and Diflucan and advised to keep the leg elevated. TIME SPENT: MORE THAN 65 MINUTES MTDD
== END 2018-03-19 15:10 | disposition home or self-care (01) | DRG 815 ==
LOC: ED 01:24 → MEDSURG A 02:43
PROVIDERS: ADMIT Emergency Medicine; ATTEND Emergency Medicine
DX: D72.829 Elevated white blood cell count, unspecified (principal); Z68.41 Body mass index [BMI] 40.0-44.9, adult; E87.6 Hypokalemia; G47.30 Sleep apnea, unspecified; E66.9 Obesity, unspecified; Z72.0 Tobacco use
CPT/HCPCS: 36415; 80048; 80053; 80202; 82550; 83036; 83605; 84145; 85025; 87040; 87070; 87081; 96365; 97802; 99284

== ENCOUNTER 2018-03-28 10:25 | Outpatient (CLI) ==
--- NOTE | 2018-03-28 11:31 | DI ---
EXAM: Four views of the right tibia and fibula. History: Right lower extremity pain. Findings: No acute fracture or dislocation. Small plantar spur. Joint spaces are relatively preser bertrand. Diffuse subcutaneous edema of the right lower extremity. No abnormal calcifications or radiopa que foreign bodies. Impression: 1. No acute osseous abnormality. 2. Diffuse subcutaneous edema
== END 2018-03-28 10:26 | disposition home or self-care (01) ==
LOC: RAD 10:25
PROVIDERS: ATTEND Emergency Medicine
DX: L03.115 Cellulitis of right lower limb (principal); L01.03 Bullous impetigo
CPT/HCPCS: 36415; 85025; 85651